=== PATIENT | female | born 1980 | race Two or more races ===

== ENCOUNTER 2023-05-26 13:42 | Emergency (ER) | payer OTHER, MEDICAID ==
[~2023-05-26] VITALS: Ht 165.1 cm; Wt 90.9 kg
[2023-05-26 16:03] VITALS: BP 126/70; PULSE 100; RESP 19; TEMP 97.7; O2SAT 97
[2023-05-26] MEDS ORDERED: KETOROLAC TROMETH 60MG/2ML VIAL IM ONE (17:00)
[2023-05-26] MEDS ORDERED: METH-1182 PO (17:15)
[2023-05-26] MEDS ORDERED: IBUP-1456 PO (17:15)
== END 2023-05-26 17:33 | disposition home or self-care (01) ==
LOC: ER 13:42
DX: S39.012A Strain of muscle, fascia and tendon of lower back, initial encounter (principal); Z90.89 Acquired absence of other organs; X58.XXXA Exposure to other specified factors, initial encounter; Y93.89 Activity, other specified; Y92.89 Other specified places as the place of occurrence of the external cause; Y99.8 Other external cause status
CPT/HCPCS: 96372; 99283; J1885